=== PATIENT | female | born 1960 | race Caucasian/White ===

== ENCOUNTER 2016-08-26 17:12 | Emergency (ER) | payer OTHER ==
[~2016-08-26 17:12] MED LIST: ALBUTEROL0.09 MG/A2 INH; ASPIRIN ADULT L81 M1 PO; ATIVAN1 MG PO; ATORVASTATIN CA20 M1 PO; CLOPIDOGREL75 MG PO; CYMBALTA30 MG PO; CYMBALTA60 MG PO; HYDROCODONE BIT1 T11 PO; IBUPROFEN600 MG PO; IMDUR SA30 MG PO; LEVAQUIN750 M1 PO; LISINOPRIL5 MG PO; LOPRESSOR25 MG PO; MEDROL DOSEPAK4 MG PO; MOTRIN800 MG PO; NAPROSYN500 MG PO; NKHM; NORCO 325 MG-51 TAB PO; PENICILLIN VK500 MG PO; PROAIR HFA8.5 GM INH; ROBAXIN750 MG PO; SPIRIVA -- 3018 MCG INH; TESSALON PERLE100 M1 PO; TOPROL XL25 MG PO; VIBRAMYCIN100 MG PO; VOLTAREN50 M1 PO; ZANTAC 150150 MG PO; ZITHROMAX Z PA250 MG PO
[2016-08-26 17:15] VITALS: BP 148/76
== END 2016-08-26 17:46 | disposition home or self-care (01) ==
LOC: ED 17:12
DX: S61.215A Laceration without foreign body of left ring finger without damage to nail, initial encounter (principal); F17.200 Nicotine dependence, unspecified, uncomplicated; Z95.1 Presence of aortocoronary bypass graft; Z88.6 Allergy status to analgesic agent; Z88.8 Allergy status to other drugs, medicaments and biological substances; Z79.82 Long term (current) use of aspirin; W26.8XXA Contact with other sharp object(s), not elsewhere classified, initial encounter; Y93.89 Activity, other specified; Y92.9 Unspecified place or not applicable; Y99.9 Unspecified external cause status

== ENCOUNTER 2017-06-22 14:26 | Emergency (ER) | payer OTHER ==
[~2017-06-22] VITALS: Ht 142.2 cm; Wt 44.5 kg
[2017-06-22] MEDS ORDERED: RANEXA500 M1 PO (14:41)
[2017-06-22] MEDS ORDERED: CHLORZOXAZONE500 M2 PO (14:44)
[2017-06-22] MEDS ORDERED: NAPROSYN500 MG PO (14:44)
[2017-06-22 15:44] VITALS: BP 158/74
== END 2017-06-22 16:31 | disposition home or self-care (01) ==
LOC: ED 14:26
DX: R51 Headache (principal); M54.2 Cervicalgia; M54.5 Low back pain; M25.561 Pain in right knee; M25.562 Pain in left knee; R03.0 Elevated blood-pressure reading, without diagnosis of hypertension; F17.200 Nicotine dependence, unspecified, uncomplicated; M19.90 Unspecified osteoarthritis, unspecified site; J44.9 Chronic obstructive pulmonary disease, unspecified; E78.00 Pure hypercholesterolemia, unspecified; Z98.890 Other specified postprocedural states; Z90.710 Acquired absence of both cervix and uterus; Z79.82 Long term (current) use of aspirin; Z79.899 Other long term (current) drug therapy; Z88.6 Allergy status to analgesic agent; V49.59XA Passenger injured in collision with other motor vehicles in traffic accident, initial encounter; Y93.89 Activity, other specified; Y92.413 State road as the place of occurrence of the external cause; Y99.9 Unspecified external cause status

== ENCOUNTER 2018-03-30 19:54 | Emergency (ER) | payer OTHER ==
[~2018-03-30] VITALS: Ht 144.7 cm; Wt 41.7 kg
[~2018-03-30 19:54] MED LIST changes: +CHLORZOXAZONE500 M2 PO; +RANEXA500 M1 PO
[2018-03-30 19:56] VITALS: BP 133/68
[2018-03-30] MEDS ORDERED: PREDNISONE10 MG PO (21:12)
[2018-03-30] MEDS ORDERED: DOXYCYCLINE100 M3 PO (21:12)
[2018-04-28] MEDS ORDERED: VITAMIN D5000 UNI1 PO (16:05)
== END 2018-03-30 21:30 | disposition home or self-care (01) ==
LOC: ED 19:54
DX: J40 Bronchitis, not specified as acute or chronic (principal); R19.7 Diarrhea, unspecified; J43.9 Emphysema, unspecified; F17.200 Nicotine dependence, unspecified, uncomplicated; Z91.048 Other nonmedicinal substance allergy status; Z88.8 Allergy status to other drugs, medicaments and biological substances; Z88.6 Allergy status to analgesic agent; Z79.82 Long term (current) use of aspirin; Z79.899 Other long term (current) drug therapy; Z90.710 Acquired absence of both cervix and uterus

== ENCOUNTER → 2019-06-10 | Outpatient (CLI) | payer OTHER ==
[~2019-06-10] MED LIST changes: +DOXYCYCLINE100 M3 PO; +PREDNISONE10 MG PO; +VITAMIN D5000 UNI1 PO
== END | disposition home or self-care (01) ==
LOC: CARD 00:18
DX: I50.22 Chronic systolic (congestive) heart failure (principal); R06.09 Other forms of dyspnea; R53.83 Other fatigue

== ENCOUNTER → 2019-12-21 | Outpatient (CLI) | payer OTHER ==
[~2019-12-21] MED LIST changes: +ROBAXIN-750750 MG PO
== END | disposition home or self-care (01) ==
LOC: US 14:00
PROVIDERS: ATTEND Internal Medicine Cardiovascular Disease
DX: M79.604 Pain in right leg (principal)

== ENCOUNTER 2019-12-31 14:22 | Emergency (ER) | payer OTHER ==
[~2019-12-31] VITALS: Ht 1493 cm; Wt 43.5 kg
[~2019-12-31 14:22] MED LIST changes: -ROBAXIN-750750 MG PO
[2019-12-31 14:25] VITALS: BP 156/86
[2019-12-31] MEDS ORDERED: ROBAXIN-750750 MG PO (16:52)
[2019-12-31] MEDS ORDERED: IBUPROFEN600 MG PO (16:52)
== END 2019-12-31 17:10 | disposition home or self-care (01) ==
LOC: ED 14:22
DX: T14.8XXA Other injury of unspecified body region, initial encounter (principal); Z88.8 Allergy status to other drugs, medicaments and biological substances; Z79.899 Other long term (current) drug therapy; Z79.82 Long term (current) use of aspirin; X58.XXXA Exposure to other specified factors, initial encounter; Y93.89 Activity, other specified; Y92.89 Other specified places as the place of occurrence of the external cause; Y99.8 Other external cause status

== ENCOUNTER → 2020-01-22 | Outpatient (CLI) | payer OTHER ==
[~2020-01-22] MED LIST changes: +ROBAXIN-750750 MG PO
== END | disposition home or self-care (01) ==
LOC: US 13:30
PROVIDERS: ATTEND Internal Medicine Cardiovascular Disease
DX: M79.604 Pain in right leg (principal); R09.89 Other specified symptoms and signs involving the circulatory and respiratory systems